=== PATIENT | male | born 1995 | race Caucasian/White ===

== ENCOUNTER 2021-12-09 14:18 | Emergency (ER) | payer SELFPAY ==
[~2021-12-09] VITALS: Ht 180.3 cm; Wt 90.9 kg
[2021-12-09 14:23] VITALS: BP 133/81
[2021-12-09] MEDS ORDERED: LIDOcaine 1% 30ml preserv. free vial IJ ONE (14:30)
[2021-12-09] MEDS ORDERED: TETanus/Pertussis (Acell)/Diphther VAC/PF (Tdap-Adult) 0.5ml syringe IMVAC ONE (14:30)
[2021-12-09] MEDS ORDERED: DOXYCYCLINE 100MG CAPSULE PO STA (14:46)
[2021-12-09] MEDS ORDERED: metroNIDAZOLE 500mg tablet PO ONE (14:50)
[2021-12-09] MEDS ORDERED: ondansetron 4mg rapidly disintigrating tab PO ONE (15:40)
[2021-12-09] MEDS ORDERED: DOXY-135 PO (15:46)
[2021-12-09] MEDS ORDERED: ONDA4TAB12 PO (15:46)
[2021-12-09] MEDS ORDERED: METR-159 PO (15:46)
== END 2021-12-09 16:04 ==
LOC: ER 14:19
DX: S81.811A Laceration without foreign body, right lower leg, initial encounter (principal); Z88.0 Allergy status to penicillin; Z79.899 Other long term (current) drug therapy; W54.0XXA Bitten by dog, initial encounter; Y93.89 Activity, other specified; Y92.89 Other specified places as the place of occurrence of the external cause; Y99.8 Other external cause status
CPT/HCPCS: 12002; 73590; 90471; 90715; 99284